=== PATIENT | female | born 1990 | race Caucasian/White ===

== ENCOUNTER 2016-12-18 13:27 | Emergency (ER) | payer OTHER ==
[~2016-12-18] VITALS: Ht 160 cm; Wt 68.2 kg
[~2016-12-18 13:27] MED LIST: ALPR0.5T8 PO; BUPR100T8 PO; HYDR-4003 PO
[2016-12-18 13:38] VITALS: BP 132/80; PULSE 83; RESP 18; O2SAT 100
--- NOTE | 2016-12-18 14:03 | ED.REPORT ---
HPI-General Illness Date of Service December 18, 2016 ED Provider: Jane Castillo History of Present Illness: feels she is having a panic attack. haven't taken xanax in a while. sees Dr. Gomez for her xanax, it has been months since she has been on it. some nausea, no vomiting. last saw primary care about 1 year ago. has not tried other medication, wellbutrin 100 mg bid, not taken for a week, has meds at home. does want a counselor. needs a note for work Nursing Notes Stated Complaint: LIGHT HEADED Chief Complaint: General Complaint Nursing Notes Reviewed: Yes Allergies: Coded Allergies: Penicillins (Verified Allergy, Severe, hives , swelling, 12/02/15) amoxicillin (Verified Adverse Reaction, Intermediate, SWELLING/HIVES, 12/01) Scheduled Bupropion ER (Bupropion ER) 100 Mg Tablet.er 100 MG PO BID Scheduled PRN Alprazolam (Alprazolam) 0.5 Mg Tablet 0.5 MG PO BID PRN PRN For Anxiety Hydrocodone-Acetaminophen 5-325 mg (Hydrocodone-Acetaminophen 5-325 mg) 1 Each Tablet 1 TABLET PO Q6H PRN PRN For Pain General Time Seen by MD: 14:02 Chief Complaint Other (anxiety) Hx Obtained From: Patient Sudden in Onset?: No Onset Occurred: Yesterday Symptom Duration: Since onset Past Medical History Past Medical History Anxiety/Depression Past Surgical History Mole removal on her toes Family History noncontributory Smoking History Current Every Day Smoker Social History Alcohol Use: Denies alcohol use Drug Use: Denies drug use Ambulatory Status Independent Review of Systems Full Review of Systems Constitutional: Denies: Chills Eyes: Denies: Blurred left, Blurred right Respiratory: Denies: Dyspnea on exertion GI: Denies: Abdominal pain Physical Exam Vital Signs Vital Signs Date Time Temp Pulse Resp B/P Pulse Ox O2 Delivery O2 Flow Rate FiO2 12/18/16 14:48 37.1 78 18 130/78 100 Room Air 12/18/16 13:38 37.1 83 18 132/80 100 Room Air Initial VS: Reviewed, Vital signs normal General/Constitutional: Well-developed, Well-nourished Head / Eyes: Atraumatic, Normocephalic, PERRL ENT: Mucous membranes moist, Conjunctiva normal, No scleral icterus Neck: Supple, Non-tender, Full range of motion Respiratory: Breath sounds normal, Clear to auscultation, No respiratory distress Cardiovascular: Regular rate & rhythm, Heart sounds normal, Intact distal pulses Abdomen / GI: Soft, Non-tender, No guarding, No rebound, No distention Back: No CVA tenderness Lymphatic: No lymphadenopathy Extremities: Vascular intact, Neuro intact, No swelling, No tenderness Skin: Warm, Dry, No cyanosis Neurologic: Alert, Oriented, Nonfocal Psychiatric: Mood/affect normal, Behavior normal, Normal thought content General/Constitutional: Awake, Alert, No acute distress, Well appearing, Well developed, Well hydrated ENT: Atraumatic, Airway patent, Mucous membranes moist, Pharynx NL Respiratory / Chest: Atraumatic, Breath sounds NL, Breath sounds = bilat, No respiratory distress Re-Eval/Medical Decision Med Decision/Clinical Course 26 year old year for evualation of anxiety. Has had prior anxiety attacks but none for almost 1 year. REturned from a week vacation in [place] and did not take her wellubutrin while on vacation. She forgot per her report. 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 Discussed with patient the need to restart her wellbutrin. Will provided visteral and she is to resume her wellubutrin Discharge & Departure Primary Impression: Anxiety Disposition: Home Patient Instructions: Generalized Anxiety Disorder (ED) Additional Instructions: You have been doing so well. Please do not stop taking your wellbutrin suddenly. This can cause a withdrawal type symptoms of which anxiety is a main component. Use visteral 50 mg up to 3 times a day as needed for anxiety. Please restart the wellbutrin that you have at home. Please make a follow up appointment with Dr. Gomez. REturn with any concerns. Referrals: Isiah Gomez MD (PCP) EDSupervising Provider for APC: Jannet Zamudio MD copies to: Isiah Gomez MD, Sue ARNP December 18, 2016 14:03
[2016-12-18 14:48] VITALS: BP 130/78; PULSE 78; RESP 18; O2SAT 100
== END 2016-12-18 14:51 | disposition home or self-care (01) ==
LOC: SED 13:27
DX: F41.9 Anxiety disorder, unspecified (principal); F17.200 Nicotine dependence, unspecified, uncomplicated; Z88.0 Allergy status to penicillin
CPT/HCPCS: 99283; Q0177